=== PATIENT | male | born 1975 | race Caucasian/White ===

== ENCOUNTER 2019-11-08 07:22 | Outpatient (CLI) | payer OTHER ==
--- NOTE | 2019-11-08 15:54 | CT ---
CT CORONARY ARTERY CALCIUM SCORIN11/08/19 HISTORY: 44-year-old male for encounter for screening for cardiovascular disorders - primary, ICD-10: Z13.6. FINDINGS: There is no coronary artery atherosclerotic calcification that registers on the [employer] software. Ther e is no cardiomegaly. Central lung zones are grossly clear. IMPRESSION: Coronary artery calcium score is 0. POS: OFF
== END 2019-11-08 07:23 | disposition home or self-care (01) ==
LOC: BICCT 07:22
PROVIDERS: ATTEND Family Medicine
DX: Z13.6 Encounter for screening for cardiovascular disorders (principal)
CPT/HCPCS: 75571